=== PATIENT | female | born 1985 | race Caucasian/White ===

== ENCOUNTER → 2016-08-21 | Outpatient (CLI) | payer BC ==
[~2016-08-21] MED LIST: ACET325T14 PO; IBUP-1222 PO; PREN1TAB60 PO; [UNRECOGNIZED DRUG - CODE] IVPush; [UNRECOGNIZED DRUG - OTHER] IVPush
== END | disposition home or self-care (01) ==
LOC: CFH 14:54
PROVIDERS: ATTEND Nurse Practitioner Family
DX: Z02.9 Encounter for administrative examinations, unspecified (principal)

== ENCOUNTER → 2016-09-11 | Outpatient (CLI) | payer BC ==
[~2016-09-11] MED LIST changes: +GADOBUTROL 10 MMOL/10 ML PFS ONE
== END | disposition home or self-care (01) ==
LOC: CFH 09:47
PROVIDERS: ATTEND Nurse Practitioner Family
DX: N36.8 Other specified disorders of urethra (principal); K57.30 Diverticulosis of large intestine without perforation or abscess without bleeding
CPT/HCPCS: 72197; A9585

== ENCOUNTER → 2017-01-07 | Outpatient (CLI) | payer BC ==
[~2017-01-07] MED LIST changes: -GADOBUTROL 10 MMOL/10 ML PFS ONE; +MULT-658 PO
[2017-01-07 15:06] LABS: PATH.CAST-FLAG NOT PRESENT; SPERM-FLAG NOT PRESENT; SRC-FLAG NOT PRESENT; XTAL-FLAG NOT PRESENT; YLC-FLAG NOT PRESENT
[2017-01-07 15:08] LABS: HEMOGLOBIN 15.1 g/dL (11.7-16.4); WHITE BLOOD COUNT 6.5 x10^3/uL (3.4-10)
[2017-01-07 15:14] LABS: BLOOD UREA NITROGEN 11 mg/dL (7-18)
[2017-01-07 15:19] LABS: ASPARTATE AMINO TRANSFERASE 11 U/L (15-37)
== END | disposition home or self-care (01) ==
LOC: STAR 14:04
PROVIDERS: ATTEND Urology
DX: Z01.818 Encounter for other preprocedural examination (principal); R82.99 Other abnormal findings in urine
CPT/HCPCS: 36415; 80053; 81001; 84703; 85025; 87086

== ENCOUNTER 2017-01-13 07:06 | Day surgery (SDC) | payer BC ==
[~2017-01-13] VITALS: Ht 165.1 cm; Wt 75.0 kg
[2017-01-13] MEDS ORDERED: THROMBIN 5,000 UNIT VIAL TP ONE (07:14)
[2017-01-13] MEDS ORDERED: LACTATED RINGERS 1,000 ML IV SCH (07:44)
[2017-01-13 07:54] LABS: HCG UR OBC PASS
[2017-01-13 08:08] VITALS: BP 109/71
[2017-01-13] MEDS ORDERED: [UNRECOGNIZED DRUG - OTHER] IV ONE (08:30)
[2017-01-13] MEDS ORDERED: BUPIVACAINE/PF-EPI 0.25% 1:200K ONE (09:48)
[2017-01-13] MEDS ORDERED: SUCCINYLCHOLINE 20 MG/ML, 10ML ONE (09:56)
[2017-01-13] MEDS ORDERED: FENTANYL PF 100 MCG/2ML ONE (09:56)
[2017-01-13] MEDS ORDERED: DEXAMETHASONE 4 MG/ML, 1ML ONE (09:56)
[2017-01-13] MEDS ORDERED: CEFAZOLIN 1,000 MG ONE (09:56)
[2017-01-13] MEDS ORDERED: PROPOFOL 10 MG/ML, 20ML ONE (09:56)
[2017-01-13] MEDS ORDERED: ONDANSETRON 2MG/ML, 2ML ONE (09:56)
[2017-01-13] MEDS ORDERED: MIDAZOLAM 1 MG/ML, 2ML ONE (09:56)
[2017-01-13] MEDS ORDERED: METOPROLOL 1 MG/ML, 5ML IV PRN (10:30)
[2017-01-13] MEDS ORDERED: ALBUTEROL SULFATE 2.5 MG/3 ML NPPB PRN (10:30)
[2017-01-13] MEDS ORDERED: ONDANSETRON 2MG/ML, 2ML IVPush PRN (10:30)
[2017-01-13] MEDS ORDERED: hydrALAzine 20 MG/ML, 1ML IV PRN (10:30)
[2017-01-13] MEDS ORDERED: MEPERIDINE/PF 25MG/0.5ML IVPush PRN (10:30)
[2017-01-13] MEDS ORDERED: ACETAMINOPHEN 325 MG TABLET PO PRN (10:30)
[2017-01-13] MEDS ORDERED: METOCLOPRAMIDE 5 MG/ML, 2ML IV PRN (10:30)
[2017-01-13] MEDS ORDERED: EPHEDRINE 50 MG/ML, 1ML IVPush PRN (10:30)
[2017-01-13] MEDS ORDERED: FENTANYL PF 100 MCG/2ML IV PRN (10:30)
[2017-01-13] MEDS ORDERED: LABETALOL 5MG/ML, 20ML IV PRN (10:30)
[2017-01-13] MEDS ORDERED: PROMETHAZINE 25 MG/ML, 1ML IV PRN (10:30)
[2017-01-13] MEDS ORDERED: OXYcodone 5 MG/5 ML ORAL.SOL UDC PO PRN (10:30)
[2017-01-13] MEDS ORDERED: MIDAZOLAM 1 MG/ML, 2ML IV PRN (10:30)
[2017-01-13] MEDS ORDERED: HYDROcodone/APAP 7.5-325MG/15ML UDC PO PRN (10:30)
[2017-01-13] MEDS ORDERED: HYDROmorphone 1 MG/ML, 1ML IV PRN (10:30)
[2017-01-13] MEDS ORDERED: ACETAMINOPHEN 650 MG/20.3 ML UDC ONE (12:01)
[2017-01-13] MEDS ORDERED: OXYcodone 5 MG/5 ML ORAL.SOL UDC ONE (12:01)
== END 2017-01-13 13:45 ==
LOC: OUT 07:06
PROVIDERS: ATTEND Urology
DX: N36.1 Urethral diverticulum (principal)
CPT/HCPCS: 53230; 81025; 88305; J0330; J0690; J1100; J2250; J2405; J2704; J3010; J7120

== ENCOUNTER 2017-01-21 00:32 | Emergency (ER) | payer BC ==
[~2017-01-21] VITALS: Ht 165.1 cm; Wt 75.1 kg
[2017-01-21 00:34] VITALS: BP 132/84
[2017-01-21 01:27] LABS: HEMATOCRIT 39.3 % (34.6-47.8); HEMOGLOBIN 13.3 g/dL (11.7-16.4); WHITE BLOOD COUNT 6.5 x10^3/uL (3.4-10)
== END 2017-01-21 02:16 | disposition home or self-care (01) ==
LOC: ED 01:03
DX: N93.8 Other specified abnormal uterine and vaginal bleeding (principal)
CPT/HCPCS: 36415; 84703; 85025; 99284

== ENCOUNTER 2019-04-07 13:16 | Outpatient (CLI) | payer BC ==
[2019-04-07] MEDS ORDERED: None at this time (14:19)
== END 2019-04-07 23:59 | disposition home or self-care (01) ==
LOC: STAR 13:16
PROVIDERS: ATTEND Surgery
DX: Z02.9 Encounter for administrative examinations, unspecified (principal)

== ENCOUNTER 2019-04-15 13:31 | Observation (INO) | payer BC ==
[~2019-04-15] VITALS: Ht 165.1 cm; Wt 85.7 kg
[~2019-04-15 13:31] MED LIST changes: +None at this time
[2019-04-15] MEDS ORDERED: [UNRECOGNIZED DRUG - OTHER] IV ONE (14:00)
[2019-04-15] MEDS ORDERED: MIDAZOLAM 1 MG/ML, 2ML ONE (14:28)
[2019-04-15] MEDS ORDERED: FENTANYL PF 100 MCG/2ML ONE ×2 (14:28→17:48)
[2019-04-15] MEDS ORDERED: DEXAMETHASONE 4 MG/ML, 1ML ONE ×2 (14:30)
[2019-04-15] MEDS ORDERED: ONDANSETRON 2MG/ML, 2ML ONE (14:30)
[2019-04-15] MEDS ORDERED: PROPOFOL 10 MG/ML, 20ML ONE (14:30)
[2019-04-15] MEDS ORDERED: CEFAZOLIN 1,000 MG ONE ×2 (14:31)
[2019-04-15 14:34] VITALS: BP 107/75
[2019-04-15] MEDS ORDERED: LACTATED RINGERS 1,000 ML IV SCH (14:39)
[2019-04-15] MEDS ORDERED: BUPIVACAINE/PF 0.5% ONE (14:47)
[2019-04-15] MEDS ORDERED: EPINEPHRINE 1 MG/ML, 1ML ONE (14:47)
[2019-04-15 14:56] LABS: HCG UR SG 1.005 (1.003-1.030)
[2019-04-15] MEDS ORDERED: ROCURONIUM 10MG/ML,5ML ONE (15:36)
[2019-04-15] MEDS ORDERED: LIDOCAINE 2% 100MG/5ML SYRINGE ONE (15:36)
[2019-04-15] MEDS ORDERED: GLYCOPYRROLATE 0.2MG/1ML, 5ML ONE (15:36)
[2019-04-15] MEDS ORDERED: OXYcodone 5 MG/5 ML ORAL.SOL UDC PO PRN (17:00)
[2019-04-15] MEDS ORDERED: FENTANYL PF 100 MCG/2ML IV PRN (17:00)
[2019-04-15] MEDS ORDERED: HYDROmorphone 2 MG/ML, 1ML IVPush PRN (17:00)
[2019-04-15] MEDS ORDERED: MEPERIDINE/PF 25MG/ML,1ML IVPush PRN (17:00)
[2019-04-15] MEDS ORDERED: ONDANSETRON 2MG/ML, 2ML IV PRN ×2 (17:00→19:30)
[2019-04-15] MEDS ORDERED: ACETAMINOPHEN 325 MG TABLET PO PRN (17:00)
[2019-04-15] MEDS ORDERED: METOCLOPRAMIDE 5 MG/ML, 2ML IV PRN (17:00)
[2019-04-15] MEDS ORDERED: LORazepam 2 MG/ML, 1ML IVPush PRN (17:00)
[2019-04-15] MEDS ORDERED: OXYcodone 5 MG/5 ML ORAL.SOL UDC ONE (17:48)
[2019-04-15] MEDS ORDERED: METOCLOPRAMIDE 5 MG/ML, 2ML ONE (17:53)
[2019-04-15] MEDS ORDERED: MEPERIDINE/PF 25MG/ML,1ML ONE (17:53)
[2019-04-15] MEDS ORDERED: [UNRECOGNIZED DRUG - OTHER] IV ONE (18:00)
[2019-04-15] MEDS: D5%-0.45NACL+KCL 20MEQ 1,000 ML IV SCH (19:00)
[2019-04-15] MEDS ORDERED: OXYcodone/APAP 5/325MG TABLET PO PRN (19:00)
[2019-04-15] MEDS ORDERED: MORPHINE SULFATE 4 MG/ML, 1ML IV PRN (19:30)
[2019-04-15] MEDS: AMINOCAPROIC ACID 250 MG/ML PO SCH (21:06)
[2019-04-16] MEDS: AMINOCAPROIC ACID 250 MG/ML PO SCH ×3 (02:58→14:50)
[2019-04-16] MEDS ORDERED: ANTIHEMOPHILIC FACTOR IVPB ONE (03:00)
[2019-04-16] MEDS ORDERED: [UNRECOGNIZED DRUG - OTHER] IVPB ONE (03:00)
[2019-04-16] MEDS ORDERED: [UNRECOGNIZED DRUG - OTHER] IVPB ONE ×2 (03:12→15:00)
[2019-04-16 03:59] VITALS: BP 94/57
[2019-04-16] MEDS: D5%-0.45NACL+KCL 20MEQ 1,000 ML IV SCH ×2 (05:00→08:52)
[2019-04-16 07:23] VITALS: BP 104/68
[2019-04-16] MEDS ORDERED: ACETAMINOPHEN 325 MG TABLET PO PRN (08:30)
[2019-04-16 13:23] VITALS: BP 90/60
[2019-04-16 16:09] VITALS: BP 94/64
[2019-04-16] MEDS ORDERED: OXYC-302 PO (16:26)
== END 2019-04-16 16:36 | disposition home or self-care (01) ==
LOC: OUT 13:31 → 4NE 18:42 → OUT 22:38 → 4NE 22:38 → DCLOUNGE 04-16 16:30
PROVIDERS: ADMIT Surgery; ATTEND Surgery
DX: K42.9 Umbilical hernia without obstruction or gangrene (principal); D68.0 Von Willebrand disease; F10.10 Alcohol abuse, uncomplicated
CPT/HCPCS: 49652; 81025; 96365; 96366; 96375; C1781; G0378; J0171; J0690; J1100; J2175; J2250; J2405; J2704; J2765; J3010; J7120; S0020; S2900